=== PATIENT | female | born 1940 | race Caucasian/White ===

== ENCOUNTER 2021-04-04 05:52 | Outpatient (CLI) | payer MEDICARE ==
[~2021-04-04] VITALS: Ht 160 cm; Wt 83.6 kg
[2021-04-04] MEDS ORDERED: FURO20TA4 PO (16:35)
[2021-04-04] MEDS ORDERED: LEVO25TA80 PO (16:35)
[2021-04-04] MEDS ORDERED: CHOL200012 PO (16:35)
[2021-04-04] MEDS ORDERED: LISI20TA26 PO (16:35)
[2021-04-04] MEDS ORDERED: SOTA80TA62 PO (16:35)
[2021-04-04] MEDS ORDERED: WARF-47 PO ×2 (16:35)
[2021-04-04] MEDS ORDERED: EZET10TA49 PO (16:35)
== END 2021-04-05 12:08 | disposition home or self-care (01) ==
LOC: PREOP 05:52
PROVIDERS: ATTEND Otolaryngology Otolaryngology/Facial Plastic Surgery
DX: Z01.818 Encounter for other preprocedural examination (principal)

== ENCOUNTER 2021-04-11 07:01 | Day surgery (SDC) | payer MEDICARE ==
[2021-04-11] VITALS (10 sets, daily range): BP systolic 134–177; BP diastolic 73–86
[~2021-04-11] VITALS: Ht 160 cm; Wt 83.6 kg
[~2021-04-11 07:01] MED LIST: CHOL200012 PO; EZET10TA49 PO; FURO20TA4 PO; LEVO25TA80 PO; LISI20TA26 PO; SOTA80TA62 PO; WARF-47 PO
[2021-04-11] MEDS ORDERED: LACTATED RINGERS 1,000 ML IV PRN (07:15)
--- NOTE | 2021-04-11 08:05 | Diagnostic Imaging Report ---
INDICATION: Evaluation prior to sinus surgery. No chest complaints. 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 Cardiac enlargement. No evidence of overt failure. Slight asymmetric opacity in the right perihilar region. Definitive sherrie lobar consolidation are present. Advanced degenerative changes thoracic spine with accentuated thoracic kyphosis. IMPRESSION: 1. Cardiac enlargement without overt failure. Prior sternotomy change. 2. Slight asymmetric opacity in the right perihilar region. This may be chronic and owing to projection. Possibility of minimal infiltrate, however, would be difficult to exclude. Dictated by: Dictated on workstation # [id number]
[2021-04-11 08:25] LABS: BASOPHILS # (AUTO) 0.1 10^3/uL (0.0-0.1); BASOPHILS % (AUTO) 1 % (0-10); EOSINOPHILS # (AUTO) 0.1 10^3/uL (0.0-0.3); EOSINOPHILS % (AUTO) 1 % (0-10); HEMATOCRIT 44 % (35-52); HEMOGLOBIN 14.2 g/dL (11.5-16.0); LYMPHOCYTES # (AUTO) 1.2 10^3/uL (1.0-4.0); LYMPHOCYTES % (AUTO) 23 % (12-44); MEAN CORPUSCULAR HEMOGLOBIN 30 pg (25-34); MEAN CORPUSCULAR HGB CONC 32 g/dL (32-36); MEAN CORPUSCULAR VOLUME 93 fL (80-99); MEAN PLATELET VOLUME 10.9 fL (9.0-12.2); MONOCYTES # (AUTO) 0.5 10^3/uL (0.0-1.0); MONOCYTES % (AUTO) 9 % (0-12); NEUTROPHILS # (AUTO) 3.5 10^3/uL (1.8-7.8); NEUTROPHILS % (AUTO) 65 % (42-75); PLATELET COUNT 152 10^3/uL (130-400); WHITE BLOOD COUNT 5.4 10^3/uL (4.3-11.0)
[2021-04-11 08:37] LABS: POTASSIUM 4.3 MMOL/L (3.6-5.0)
[2021-04-11 08:38] LABS: CALCIUM 9.8 MG/DL (8.5-10.1)
[2021-04-11] MEDS ORDERED: fentaNYL INJ 100 MCG/2 ML AMP ONE (08:41)
[2021-04-11] MEDS ORDERED: MIDAZOLAM 2 MG/2 ML (VERSED) VIAL ONE (08:41)
[2021-04-11 08:42] LABS: CREATININE SERUM 0.97 MG/DL (0.60-1.30)
[2021-04-11] MEDS ORDERED: LIDOCAINE/EPI 1%-1:100,000 (XYLOCAINE) 20ML ONE (08:43)
[2021-04-11] MEDS ORDERED: MUPIROCIN 2% OINT 22 GM (BACTROBAN) TUBE ONE (08:44)
[2021-04-11] MEDS ORDERED: BSS 15 ML ONE (08:44)
--- NOTE | 2021-04-11 09:06 | Progress Note-Pre Operative ---
Pre-Operative Progress Note H&P Reviewed The H&P was reviewed, patient examined and no changes noted. Date Seen by Provider: Apr 11, 2021 Time Seen by Provider: 08:45 Date H&P Reviewed: Apr 11, 2021 Time H&P Reviewed: 08:45 Pre-Operative Diagnosis: Left Nasal Lesion JUMANA THAKKAR MD Apr 11, 2021 09:06
[2021-04-11] MEDS ORDERED: SEVOFLURANE (ULTANE) 15 ML INHAL SOLN ONE (09:30)
[2021-04-11] MEDS ORDERED: LIDOCAINE PF 2% 5 ML (XYLOCAINE) VIAL ONE (09:30)
[2021-04-11] MEDS ORDERED: POTASSIUM CL 10MEQ/50ML IVPB 0 ML IV ONE (09:30)
[2021-04-11] MEDS ORDERED: ONDANSETRON 4 MG/2 ML (SDV) Z0FRAN ONE (09:31)
[2021-04-11] MEDS ORDERED: proPOfol 200 MG/20 ML (DIPRIVAN) VIAL IV ONE (09:31)
--- NOTE | 2021-04-11 09:34 | Progress Note-Post Operative ---
Post-Operative Progess Note Surgeon (s)/Manager Hvac (s) Surgeon JUMANA THAKKAR MD Manager Hvac n/a Pre-Operative Diagnosis Left Nasal Lesion Post-Operative Diagnosis same Post-Op Procedure Note Date of Procedure: Apr 11, 2021 Name of Procedure Performed: Excision of Nasal Lesioin, Reconstruction with Bilateral Advancement Flaps Description & Findings Description and Findings: n/a Anesthesia Type gen lma Estimated Blood Loss minimal Packing none. Specimen(s) collected/removed nasal lesion for frozen sections JUMANA THAKKAR MD Apr 11, 2021 09:34
[2021-04-11] MEDS ORDERED: HYDROcodone/APAP 5 MG/325 MG (LORTAB) TAB PO PRN (09:45)
[2021-04-11] MEDS ORDERED: ACETAMINOPHEN 325 MG TABLET PO PRN (09:45)
--- NOTE | 2021-04-11 10:51 | Anesthesia-General Post-Op ---
General Patient Condition Mental Status/LOC: Same as Preop Cardiovascular: Satisfactory Nausea/Vomiting: Absent Respiratory: Satisfactory Pain: Controlled Complications: Absent Post Op Complications Complications None Follow Up Care/Instructions Patient Instructions None needed. Anesthesia/Patient Condition Patient Condition Patient is doing well, no complaints, stable vital signs, no apparent adverse anesthesia problems. No complications reported per nursing. SUNDAY NOVAK CRNA Apr 11, 2021 10:51
[2021-04-11] MEDS ORDERED: ACHD5005 PO (11:20)
[2021-04-11] MEDS ORDERED: CEPH500T PO (11:20)
== END 2021-04-11 13:15 | disposition home or self-care (01) ==
LOC: SDC 07:01
PROVIDERS: ATTEND Otolaryngology Otolaryngology/Facial Plastic Surgery
DX: C44.311 Basal cell carcinoma of skin of nose (principal); H93.19 Tinnitus, unspecified ear; E87.8 Other disorders of electrolyte and fluid balance, not elsewhere classified; H90.3 Sensorineural hearing loss, bilateral; I10 Essential (primary) hypertension; I25.10 Atherosclerotic heart disease of native coronary artery without angina pectoris; I48.91 Unspecified atrial fibrillation; Z79.01 Long term (current) use of anticoagulants; Z95.0 Presence of cardiac pacemaker; Z95.1 Presence of aortocoronary bypass graft; Z79.890 Hormone replacement therapy; Z79.899 Other long term (current) drug therapy; Z80.9 Family history of malignant neoplasm, unspecified; Z83.3 Family history of diabetes mellitus; Z82.49 Family history of ischemic heart disease and other diseases of the circulatory system
CPT/HCPCS: 36415; 71046; 80048; 85025; 87081; 88305; 88331; 93005